=== PATIENT | male | born 1955 | race Caucasian/White ===

== ENCOUNTER → 2020-03-17 | Outpatient (CLI) | payer MEDICARE ==
[~2020-03-17] MED LIST: ACET-1600 PO; ASPI81TA45 PO; LISI40TA PO; OMEP20TA62 PO
[2020-03-17 14:38] LABS: MICROSCOPIC NOT IND
[2020-03-17 14:40] LABS: BASOPHILS % (AUTO) 1 % (0-1); EOSINOPHILS % (AUTO) 3 % (1-7); LYMPHOCYTES % (AUTO) 32 % (22-44); MEAN CORPUSCULAR HEMOGLOBIN 31.3 pg (27.5-34.5); MEAN CORPUSCULAR HGB CONC 33.4 g/dL (33.2-36.2); MEAN PLATELET VOLUME 8.5 fL (7.4-10.4); MONOCYTES % (AUTO) 11 % (2-9); NEUTROPHILS % (AUTO) 53 % (42-75); PLATELET COUNT 242 x10^3/uL (130-400); RED BLOOD COUNT 5.01 x10^6/uL (4.38-5.82); RED CELL DISTRIBUTION WIDTH 13.8 % (9.4-14.8)
[2020-03-17 14:53] LABS: ANION GAP 4 mmol/L (5-15); CALCIUM 10.1 mg/dL (8.5-10.1); CHLORIDE 103 mmol/L (98-107)
[2020-03-17 14:56] LABS: ALANINE AMINOTRANSFERASE 26 U/L (12-78); ALKALINE PHOSPHATASE 70 U/L (45-117); BILIRUBIN,TOTAL 0.5 mg/dL (0.2-1.0); CREATININE 1.17 mg/dL (0.7-1.3); TOTAL PROTEIN 8.3 g/dL (6.4-8.2)
[2020-03-17 15:07] LABS: MD NO
[2020-03-17 15:46] LABS: INTERNATIONAL NORMALIZED RATIO 1.01 (0.93-1.1); PROTHROMBIN TIME 10.7 Seconds (9.6-11.5)
== END | disposition home or self-care (01) ==
LOC: STAR 12:56
PROVIDERS: ATTEND Neurological Surgery
DX: Z01.812 Encounter for preprocedural laboratory examination (principal); Z01.811 Encounter for preprocedural respiratory examination; Z20.828 Contact with and (suspected) exposure to other viral communicable diseases; Z01.810 Encounter for preprocedural cardiovascular examination; M47.22 Other spondylosis with radiculopathy, cervical region; M50.121 Cervical disc disorder at C4-C5 level with radiculopathy; R82.90 Unspecified abnormal findings in urine; M48.02 Spinal stenosis, cervical region; R94.31 Abnormal electrocardiogram [ECG] [EKG]; R79.1 Abnormal coagulation profile; S33.140A Subluxation of L4/L5 lumbar vertebra, initial encounter; I25.2 Old myocardial infarction; X58.XXXA Exposure to other specified factors, initial encounter; Y93.89 Activity, other specified; Y92.89 Other specified places as the place of occurrence of the external cause; Y99.8 Other external cause status
CPT/HCPCS: 36415; 71046; 72050; 80053; 81003; 85025; 85610; 85730; 87635; 93005

== ENCOUNTER 2020-09-30 08:00 | Outpatient (CLI) | payer MEDICARE ==
[~2020-09-30] VITALS: Ht 177.8 cm; Wt 90.9 kg
[~2020-09-30 08:00] MED LIST changes: +CYCL10TA2 PO; +DOXY100C2 PO; +HYDR1TAB53 PO; -LISI40TA PO; +LISI40TA9 PO; +METH4TAB2 PO
[2020-09-30] MEDS ORDERED: GABA300C PO (10:18)
[2020-09-30] MEDS ORDERED: ASPI81TA45 PO (10:18)
[2020-09-30 12:28] LABS: BASOPHILS % (AUTO) 1 % (0-1); EOSINOPHILS % (AUTO) 2 % (1-7); LYMPHOCYTES % (AUTO) 28 % (22-44); MEAN CORPUSCULAR HEMOGLOBIN 32.8 pg (27.5-34.5); MEAN CORPUSCULAR HGB CONC 34.8 g/dL (33.2-36.2); MEAN PLATELET VOLUME 8.5 fL (7.4-10.4); MONOCYTES % (AUTO) 11 % (2-9); NEUTROPHILS % (AUTO) 57 % (42-75); PLATELET COUNT 194 x10^3/uL (130-400); RED BLOOD COUNT 4.78 x10^6/uL (4.38-5.82); RED CELL DISTRIBUTION WIDTH 14.3 % (9.4-14.8)
[2020-09-30 12:36] LABS: MICROSCOPIC NOT IND
[2020-09-30 12:39] LABS: INTERNATIONAL NORMALIZED RATIO 1.01 (0.93-1.1); PROTHROMBIN TIME 10.8 Seconds (9.6-11.5)
[2020-09-30 12:42] LABS: CHLORIDE 102 mmol/L (98-107)
[2020-09-30 12:45] LABS: ALANINE AMINOTRANSFERASE 30 U/L (12-78); ALKALINE PHOSPHATASE 62 U/L (45-117); ANION GAP 3 mmol/L (5-15); BILIRUBIN,TOTAL 0.6 mg/dL (0.2-1.0); CALCIUM 9.2 mg/dL (8.5-10.1); CREATININE 0.99 mg/dL (0.7-1.3); TOTAL PROTEIN 7.8 g/dL (6.4-8.2)
== END 2020-09-30 23:59 | disposition home or self-care (01) ==
LOC: STAR 08:00 → EDSTATUS 10-03 09:30
PROVIDERS: ATTEND Neurological Surgery
DX: U07.1 COVID-19 (principal); Z01.818 Encounter for other preprocedural examination; M48.02 Spinal stenosis, cervical region; M50.33 Other cervical disc degeneration, cervicothoracic region; M48.03 Spinal stenosis, cervicothoracic region; I25.2 Old myocardial infarction
CPT/HCPCS: 36415; 71046; 72050; 80053; 81003; 85025; 85610; 85730; 93005; U0003; U0005

== ENCOUNTER 2020-11-07 07:00 | Inpatient (IN) | payer MEDICARE ==
[~2020-11-07] VITALS: Ht 177.8 cm; Wt 98.4 kg
[~2020-11-07 07:00] MED LIST changes: +GABA300C PO
[2020-11-25] MEDS ORDERED: NAPR220T77 PO (10:10)
[2020-11-25] MEDS ORDERED: TRAM50TA2 PO (10:10)
[2020-12-05] MEDS ORDERED: BUPIVACAINE/PF 0.5% ONE (06:20)
[2020-12-05] MEDS ORDERED: GENTAMICIN 80 MG/2 ML ONE (06:20)
[2020-12-05] MEDS ORDERED: EPINEPHRINE 1 MG/ML, 1ML ONE (06:20)
[2020-12-05] MEDS ORDERED: VANCOMYCIN 1,000 MG ONE (06:20)
[2020-12-05] MEDS ORDERED: CHLORHEXIDINE 15 ML UDC ONE (14:23)
[2020-12-05] MEDS ORDERED: AMLO-211 PO (14:29)
[2020-12-05] MEDS ORDERED: LACTATED RINGERS 1,000 ML IV SCH (14:30)
[2020-12-05] MEDS ORDERED: CHLORHEXIDINE 15 ML UDC PO ONE (15:00)
[2020-12-05] MEDS ORDERED: MIDAZOLAM 1 MG/ML, 2ML ONE (15:01)
[2020-12-05] MEDS ORDERED: FENTANYL PF 250 MCG/5ML ONE (15:01)
[2020-12-05] MEDS ORDERED: SUCCINYLCHOLINE 20 MG/ML, 10ML ONE (15:39)
[2020-12-05] MEDS ORDERED: DEXAMETHASONE 4 MG/ML, 1ML ONE ×2 (15:39)
[2020-12-05] MEDS ORDERED: PROPOFOL 10 MG/ML, 20ML ONE (15:39)
[2020-12-05] MEDS ORDERED: CEFAZOLIN 1,000 MG ONE ×2 (15:39)
[2020-12-05] MEDS ORDERED: LABETALOL 5MG/ML, 20ML IV PRN (16:00)
[2020-12-05] MEDS ORDERED: OXYcodone 5 MG/5 ML ORAL.SOL UDC PO PRN (16:00)
[2020-12-05] MEDS ORDERED: MEPERIDINE/PF 25MG/0.5ML IVPush PRN (16:00)
[2020-12-05] MEDS ORDERED: METHOCARBAMOL 1,000 MG in DEXTROSE 5% 100 ML IV PRN (16:00)
[2020-12-05] MEDS ORDERED: DIAZEPAM 5 MG/ML, 2ML IVPush PRN (16:00)
[2020-12-05] MEDS ORDERED: hydrALAzine 20 MG/ML, 1ML IV PRN (16:00)
[2020-12-05] MEDS ORDERED: PROMETHAZINE 25 MG/ML, 1ML IVPush PRN (16:00)
[2020-12-05] MEDS ORDERED: ACETAMINOPHEN 325 MG TABLET PO PRN (16:00)
[2020-12-05] MEDS ORDERED: ONDANSETRON 2MG/ML, 2ML IVPush PRN ×2 (16:00→18:30)
[2020-12-05] MEDS ORDERED: FENTANYL PF 100 MCG/2ML ONE ×4 (17:45→18:41)
[2020-12-05] MEDS ORDERED: OXYcodone 5 MG/5 ML ORAL.SOL UDC ONE (17:55)
[2020-12-05] MEDS: FENTANYL PF 100 MCG/2ML IV PRN ×5 (18:07→18:46)
[2020-12-05] MEDS ORDERED: PHARMACY MAY ADJ FOR RENAL FX MC PRN (18:30)
[2020-12-05] MEDS ORDERED: LABETALOL 5MG/ML, 20ML IVPush PRN (18:30)
[2020-12-05] MEDS ORDERED: DIPHENHYDRAMINE 50 MG CAPSULE PO PRN (18:30)
[2020-12-05] MEDS ORDERED: METHOCARBAMOL 1,000 MG in DEXTROSE 5% 100 ML IV ONE (18:30)
[2020-12-05] MEDS ORDERED: HYDROcodone/APAP 5/325 TABLET PO PRN (18:30)
[2020-12-05] MEDS ORDERED: PROMETHAZINE 25 MG/ML, 1ML IM PRN (18:30)
[2020-12-05] MEDS ORDERED: HYDROmorphone 1 MG/ML, 1ML INJ ONE (18:41)
[2020-12-05] MEDS: HYDROmorphone 1 MG/ML, 1ML INJ IVPush PRN ×2 (18:56→19:07)
[2020-12-05] MEDS ORDERED: LABETALOL 5MG/ML, 20ML ONE (19:24)
[2020-12-05] MEDS: morphine SULFATE 10 MG/ML, 1ML IVPush PRN ×2 (20:15→23:00)
[2020-12-05 20:19] VITALS: BP 158/96
[2020-12-05] MEDS: GABAPENTIN 300 MG CAPSULE PO SCH (21:29)
[2020-12-05] MEDS: SODIUM CHLORIDE FLUSH 10ML SYR IVF SCH (21:29)
[2020-12-05] MEDS: HYDROcodone/APAP 10/325 MG TABLET PO PRN (21:30)
[2020-12-05] MEDS: SENNA/DOCUSATE TABLET PO PRN (21:33)
[2020-12-05] MEDS: NS + 20MEQ KCL 1,000 ML IV SCH (21:34)
[2020-12-05] MEDS: METHOCARBAMOL 750 MG TABLET PO PRN (23:00)
[2020-12-06] MEDS: CEFAZOLIN PMX 1GM/50ML 50 ML IVPB SCH ×2 (00:19→09:43)
[2020-12-06 00:28] VITALS: BP 132/78
[2020-12-06] MEDS: HYDROcodone/APAP 10/325 MG TABLET PO PRN (01:39)
[2020-12-06 04:43] VITALS: BP 142/79
[2020-12-06] MEDS: CYCLOBENZAPRINE 10 MG TABLET PO PRN ×2 (05:39→16:20)
[2020-12-06] MEDS: morphine SULFATE 10 MG/ML, 1ML IVPush PRN ×4 (05:39→22:26)
[2020-12-06 07:00] VITALS: BP 155/87
[2020-12-06] MEDS: SODIUM CHLORIDE FLUSH 10ML SYR IVF SCH ×2 (09:00→20:36)
[2020-12-06] MEDS: GABAPENTIN 300 MG CAPSULE PO SCH ×3 (09:55→20:35)
[2020-12-06] MEDS: PANTOPRAZOLE 40MG TABLET PO SCH (09:55)
[2020-12-06] MEDS: LISINOPRIL 40 MG TABLET PO SCH (09:55)
[2020-12-06] MEDS: AMLODIPINE 10 MG TAB PO SCH (09:55)
[2020-12-06] MEDS: NS + 20MEQ KCL 1,000 ML IV SCH ×2 (11:55→23:58)
[2020-12-06] MEDS: NICOTINE 21 MG/24 HR PATCH.TD24 TD SCH (11:58)
[2020-12-06 12:25] VITALS: BP 124/89
[2020-12-06] MEDS: OXYcodone/APAP 5/325MG TABLET PO PRN ×3 (12:30→20:36)
[2020-12-06] MEDS: SENNA/DOCUSATE TABLET PO PRN (13:52)
[2020-12-06] MEDS: MAGNESIUM HYDROXIDE 8%, 30ML UDC PO PRN (16:22)
[2020-12-06] MEDS: METHOCARBAMOL 750 MG TABLET PO PRN (20:35)
[2020-12-06 20:38] VITALS: BP 136/71
[2020-12-07] MEDS: CYCLOBENZAPRINE 10 MG TABLET PO PRN ×2 (02:43→10:58)
[2020-12-07] MEDS: OXYcodone/APAP 5/325MG TABLET PO PRN ×5 (02:44→21:10)
[2020-12-07] MEDS: MAGNESIUM HYDROXIDE 8%, 30ML UDC PO PRN (02:45)
[2020-12-07 02:48] VITALS: BP 132/93
[2020-12-07] MEDS: SENNA/DOCUSATE TABLET PO PRN (05:33)
[2020-12-07 06:29] VITALS: BP 155/85
[2020-12-07] MEDS: METHOCARBAMOL 750 MG TABLET PO PRN ×2 (06:36→15:07)
[2020-12-07] MEDS ORDERED: PINK LADY ENEMA 490 ML BOTTLE PR PRN (07:30)
[2020-12-07] MEDS ORDERED: MAGNESIUM CITRATE 300ML ORAL SOL PO ONE (07:30)
[2020-12-07] MEDS ORDERED: BISACODYL 10 MG SUPP PR PRN (07:30)
[2020-12-07] MEDS: AMLODIPINE 10 MG TAB PO SCH (07:53)
[2020-12-07] MEDS: PANTOPRAZOLE 40MG TABLET PO SCH (07:53)
[2020-12-07] MEDS: SODIUM CHLORIDE FLUSH 10ML SYR IVF SCH ×2 (07:54→21:10)
[2020-12-07] MEDS: GABAPENTIN 300 MG CAPSULE PO SCH ×3 (07:54→21:10)
[2020-12-07] MEDS: LISINOPRIL 40 MG TABLET PO SCH (07:54)
[2020-12-07] MEDS: NICOTINE 21 MG/24 HR PATCH.TD24 TD SCH (07:55)
[2020-12-07] MEDS: morphine SULFATE 10 MG/ML, 1ML IVPush PRN ×2 (12:06→18:35)
[2020-12-07] MEDS: NS + 20MEQ KCL 1,000 ML IV SCH (13:30)
[2020-12-07 14:15] VITALS: BP 118/72
[2020-12-07 20:43] VITALS: BP 140/84
[2020-12-08] MEDS: METHOCARBAMOL 750 MG TABLET PO PRN (00:03)
[2020-12-08] MEDS: morphine SULFATE 10 MG/ML, 1ML IVPush PRN ×2 (00:04→12:04)
[2020-12-08] MEDS: NS + 20MEQ KCL 1,000 ML IV SCH (01:17)
[2020-12-08] MEDS: OXYcodone/APAP 5/325MG TABLET PO PRN ×3 (01:41→11:09)
[2020-12-08 01:51] VITALS: BP 140/81
[2020-12-08 07:31] VITALS: BP 123/80
[2020-12-08] MEDS ORDERED: OXYC-380 PO (09:17)
[2020-12-08] MEDS ORDERED: CYCL10TA2 PO (09:17)
[2020-12-08] MEDS: LISINOPRIL 40 MG TABLET PO SCH (09:46)
[2020-12-08] MEDS: GABAPENTIN 300 MG CAPSULE PO SCH (09:46)
[2020-12-08] MEDS: PANTOPRAZOLE 40MG TABLET PO SCH (09:46)
[2020-12-08] MEDS: AMLODIPINE 10 MG TAB PO SCH (09:47)
[2020-12-08] MEDS: NICOTINE 21 MG/24 HR PATCH.TD24 TD SCH (10:00)
[2020-12-08 12:03] VITALS: BP 132/70
[2020-12-08] MEDS: SODIUM CHLORIDE FLUSH 10ML SYR IVF SCH (12:04)
== END 2020-12-08 12:40 | disposition home or self-care (01) | DRG 472 ==
LOC: ORIP 12-05 14:06 → 4NE 12-05 19:42
PROVIDERS: ADMIT Neurological Surgery; ATTEND Neurological Surgery
PROC: 00NW0ZZ Release Cervical Spinal Cord, Open Approach (ICD-10-PCS; 2020-12-05)
PROC: 0RG2071 Fusion of 2 or more Cervical Vertebral Joints with Autologous Tissue Substitute, Posterior Approach, Posterior Column, Open Approach (ICD-10-PCS; 2020-12-05)
PROC: 4A11X4G Monitoring of Peripheral Nervous Electrical Activity, Intraoperative, External Approach (ICD-10-PCS; 2020-12-05)
PROC: 01N10ZZ Release Cervical Nerve, Open Approach (ICD-10-PCS; principal; 2020-12-05 17:00)
DX: M48.02 Spinal stenosis, cervical region (principal); G95.9 Disease of spinal cord, unspecified; M54.12 Radiculopathy, cervical region; K59.00 Constipation, unspecified; F17.210 Nicotine dependence, cigarettes, uncomplicated; Z79.899 Other long term (current) drug therapy; Z98.1 Arthrodesis status
CPT/HCPCS: 36415; 72040; 86850; 86900; 88305; 88311; 95938; 95941; C1713; G0378; J0171; J0690; J1100; J1170; J2250; J2704; J3010; J3370; J3480; C1763; J0330; J1580; J2270; J2800; J7120

== ENCOUNTER → 2020-11-25 | Outpatient (CLI) | payer MEDICARE ==
[~2020-11-25] MED LIST changes: +NAPR220T77 PO; +TRAM50TA2 PO
[2020-11-25 10:08] LABS: MICROSCOPIC NOT IND
[2020-11-25 10:27] LABS: BASOPHILS % (AUTO) 1 % (0-1); EOSINOPHILS % (AUTO) 1 % (1-7); LYMPHOCYTES % (AUTO) 23 % (22-44); MEAN CORPUSCULAR HEMOGLOBIN 32.9 pg (27.5-34.5); MEAN CORPUSCULAR HGB CONC 34.6 g/dL (33.2-36.2); MEAN PLATELET VOLUME 7.8 fL (7.4-10.4); MONOCYTES % (AUTO) 10 % (2-9); NEUTROPHILS % (AUTO) 65 % (42-75); PLATELET COUNT 199 x10^3/uL (130-400); RED BLOOD COUNT 5.03 x10^6/uL (4.38-5.82); RED CELL DISTRIBUTION WIDTH 13.5 % (9.4-14.8)
[2020-11-25 10:28] LABS: ALBUMIN 4.1 g/dL (3.4-5.0); ANION GAP 3 mmol/L (5-15); CALCIUM 9.4 mg/dL (8.5-10.1); CHLORIDE 101 mmol/L (98-107)
[2020-11-25 10:29] LABS: INTERNATIONAL NORMALIZED RATIO 1.02 (0.93-1.1); PROTHROMBIN TIME 10.9 Seconds (9.6-11.5)
[2020-11-25 10:32] LABS: ALANINE AMINOTRANSFERASE 34 U/L (12-78); ALKALINE PHOSPHATASE 68 U/L (45-117); BILIRUBIN,TOTAL 0.7 mg/dL (0.2-1.0); CREATININE 1.03 mg/dL (0.7-1.3); TOTAL PROTEIN 7.9 g/dL (6.4-8.2)
== END | disposition home or self-care (01) ==
LOC: STAR 09:12
PROVIDERS: ATTEND Neurological Surgery
DX: Z01.812 Encounter for preprocedural laboratory examination (principal); Z01.811 Encounter for preprocedural respiratory examination; Z01.810 Encounter for preprocedural cardiovascular examination; M48.02 Spinal stenosis, cervical region; R82.90 Unspecified abnormal findings in urine; R94.31 Abnormal electrocardiogram [ECG] [EKG]; R79.1 Abnormal coagulation profile
CPT/HCPCS: 36415; 80053; 81003; 85025; 85610; 85730